=== PATIENT | male | born 1980 | race Two or more races ===

== ENCOUNTER 2018-09-04 14:55 | Emergency (ER) | payer OTHER ==
[2018-09-04] MEDS ORDERED: morphine CARPU-JECT 4 MG/1 ML DISP.SYRIN IVPUSH ONE ×2 (15:21→17:40)
[2018-09-04 15:30] VITALS: BMI 30.5
[2018-09-04] MEDS ORDERED: SODIUM CHLORIDE 0.9% 500 ML INFUS.BAG IV ONE (15:49)
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
[2018-09-04 15:50] LABS: EOS % 2.7 % (0-4.5); HEMATOCRIT 45.6 % (35.4-49); HEMOGLOBIN 15.9 GM/dL (11.7-16.9); LYMPH % 19.9 % (8-40); MCH 28.5 pg (25.7-33.7); MCHC 34.9 g/dl (32.0-35.9); MEAN CELL VOLUME 81.7 fl (80-96); MEAN PLT VOLUME 8.7 fl (7.5-11.1); NEUT % 70.4 % (42.8-82.8); RBC 5.58 M/mm3 (4.00-5.60); RDW 14.1 % (11.9-15.9); WHITE BLOOD COUNT 7.4 K/mm3 (4.0-10.0)
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
[2018-09-04 16:00] LABS: PLATELET COUNT 276 K/MM3 (134-434)
[2018-09-04] MEDS ORDERED: morphine SULFATE 4 MG/ML VIAL ONE ×2 (16:00→18:04)
[2018-09-04 16:03] LABS: INR 0.96 (0.83-1.09); PROTHROMBIN TIME (PATIENT) 11.3 SEC (9.7-13.0)
[2018-09-04 17:47] LABS: BILIRUBIN,TOTAL 0.2 mg/dL (0.2-1); CALCIUM 8.8 mg/dL (8.5-10.1); CREATININE 1.1 mg/dL (0.55-1.3); POTASSIUM 4.2 mmol/L (3.5-5.1); TOT PROT 6.8 g/dl (6.4-8.2)
[2018-09-04] MEDS ORDERED: SODIUM CHLORIDE 1,000 ML IV STA (20:04)
[2018-09-04] MEDS ORDERED: ONDANSETRON 4 MG/2 ML VIAL IVPUSH ONE (20:04)
[2018-09-04] MEDS ORDERED: ONDANSETRON 4 MG/2 ML VIAL ONE (20:05)
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
[2018-09-04 21:46] VITALS: BP 131/78; PULSE 82; TEMP 98.4
--- NOTE | 2018-09-06 00:24 | EKG ---
Test Reason : Blood Pressure : / mmHG Vent. Rate : 092 BPM Atrial Rate : 092 BPM P-R Int : 204 ms QRS Dur : 102 ms QT Int : 330 ms P-R-T Axes : 032 008 023 degrees QTc Int : 408 ms NORMAL SINUS RHYTHM INCOMPLETE RIGHT BUNDLE BRANCH BLOCK BORDERLINE ECG NO PREVIOUS ECGS AVAILABLE Confirmed by MD Cecilio, Evan ([id number]) on 09/06/2018 12:24:09 AM Referred By: Confirmed By:Evan Hernandes MD
== END 2018-09-04 21:46 | disposition home or self-care (01) ==
LOC: JER 14:55
PROC: 3E0337Z Introduction of Electrolytic and Water Balance Substance into Peripheral Vein, Percutaneous Approach (ICD-10-PCS; principal; 2018-09-04)
PROC: 3E033NZ Introduction of Analgesics, Hypnotics, Sedatives into Peripheral Vein, Percutaneous Approach (ICD-10-PCS; 2018-09-04)
PROC: 3E033GC Introduction of Other Therapeutic Substance into Peripheral Vein, Percutaneous Approach (ICD-10-PCS; 2018-09-04)
PROC: B246ZZZ Ultrasonography of Right and Left Heart (ICD-10-PCS; 2018-09-04)
PROC: BW40ZZZ Ultrasonography of Abdomen (ICD-10-PCS; 2018-09-04)
DX: S29.8XXA Other specified injuries of thorax, initial encounter (principal); R07.89 Other chest pain; M25.512 Pain in left shoulder; M25.552 Pain in left hip; V43.51XA Car driver injured in collision with sport utility vehicle in traffic accident, initial encounter; Y92.414 Local residential or business street as the place of occurrence of the external cause; Y93.89 Activity, other specified; Y99.8 Other external cause status
CPT/HCPCS: 36415; 70450-TC; 71260-TC; 72125-TC; 72128-TC; 72131-TC; 73030-TC-LT-FY; 73060-TC-LT-FY; 73070-TC-LT-FY; 73523-TC-FY; 74177-TC; 80053; 85025; 85610; 85730; 93005; 93010; 99283-25; J7030